=== PATIENT | female | born 1990 | race American Indian/Alaskan Native ===

== ENCOUNTER 2019-01-28 20:26 | Inpatient (IN) | payer MEDICAID ==
[2019-01-28] MEDS ORDERED: BRETHINE IVP PRN (21:32)
[2019-01-28] MEDS ORDERED: STADOL IV PRN (21:32)
[2019-01-28] MEDS ORDERED: CERVIDIL VG ONE (21:32)
[2019-01-28] MEDS ORDERED: XYLOCAINE 2% INFILTRATI ONE (21:32)
[2019-01-28] MEDS ORDERED: ZOFRAN IV PRN (21:32)
[2019-01-28] MEDS ORDERED: BRETHINE SUB-Q PRN (21:32)
[2019-01-28] MEDS ORDERED: NARCAN 0.4 MG/1 ML IV PRN (21:32)
[2019-01-28] MEDS ORDERED: SUBLIMAZE IV PRN (21:32)
[2019-01-28] MEDS ORDERED: MINERAL OIL PO PRN (21:32)
[2019-01-28 21:46] LABS: Hematocrit 37.5 % (30.3-42.9); Hemoglobin 12.4 gm/dl (10.1-14.3); Mean Corpuscular HGB Conc 33 % (30-34); Mean Corpuscular Volume 86 fl (79-97); Platelet Count 268 K/mm3 (140-440); Red Blood Count 4.38 M/mm3 (3.65-5.03); Red Cell Distribution Width 15.2 % (13.2-15.2)
[2019-01-28] MEDS ORDERED: PITOCin/NS 20 UNIT/1000ML DRIP 20 UNITS/1,000 ML BAG IV SCH (22:00)
[2019-01-29] MEDS ORDERED: PITOCin/NS 30 UNIT/500ML 30 UNITS/500 ML BAG IV SCH
[2019-01-29] MEDS: LACTATED RINGERS 1,000 ML IV SCH ×2 (01:13→11:10)
--- NOTE | 2019-01-29 12:12 | History and Physical Report ---
History of Present Illness Date of examination: 01/29/19 Date of admission: 01/28/19 20:26 Chief complaint: scheduled induction History of present illness: Pt is a 28 year old female primigravida SARI 01/20/19 at 41w2d who presents for scheduled induction for postdates. Overnight she received cervidil, which is still in place. She reports good movement, and denies vaginal bleeding or leakage of fluid. She has had care at [facility] since 28 wks complicated by late entry to care at 28 wks, genital herpes on Valtrex suppression without lesion or prodrome, and alpha thalassemia carrier status. She is GBS negative. Past History Past Medical History: no pertinent history Past Surgical History: no surgical history [facility] History: herpes (on suppression, no lesion or prodrome ) Family/Genetic History: none Social history: no significant social history - Obstetrical History Expected Date of Delivery: 01/20/19 Actual Gestation: 41 Week(s) 2 Day(s) : 1 Medications and Allergies Allergies Allergy/AdvReac Type Severity Reaction Status Date / Time No Known Allergies Allergy Verified 01/28/19 21:59 Active Meds: Active Medications Butorphanol Tartrate (Stadol) 2 mg IV Q2H PRN PRN Reason: Pain , Severe (7-10) Ephedrine Sulfate (Ephedrine Sulfate) 10 mg IV Q2M PRN PRN Reason: Hypotension Fentanyl (Sublimaze) 100 mcg IV Q2H PRN PRN Reason: Labor Pain Oxytocin/Sodium Chloride (Pitocin/Ns 20 Unit/1000ml Drip) 20 units in 1,000 mls @ 125 mls/hr IV DIRECT ISAIAH Oxytocin/Sodium Chloride (Pitocin/Ns 30 Unit/500ml) 30 units in 500 mls @ 2 mls/hr IV TITR ISAIAH; Protocol Lactated Ringer's (Lactated Ringers) 1,000 mls @ 125 mls/hr IV DIRECT ISAIAH Last Admin: 01/29/19 11:10 Dose: 125 mls/hr Documented by: Mineral Oil (Mineral Oil) 30 ml PO QHS PRN PRN Reason: Constipation Naloxone HCl (Narcan 0.4 Mg/1 Ml) 0.1 mg IV Q2MIN PRN PRN Reason: Res Rate </= 8 or 02 SAT < 92% Ondansetron HCl (Zofran) 4 mg IV Q8H PRN PRN Reason: Nausea And Vomiting Terbutaline Sulfate (Brethine) 0.25 mg SUB-Q ONCE PRN PRN Reason: Hyperstimulation/Hypertonicity Terbutaline Sulfate (Brethine) 0.25 mg IVP ONCE PRN PRN Reason: Hyperstimulation/Hypertonicity Review of Systems All systems: negative - Vital Signs Vital signs: Vital Signs Pulse BP 88 122/84 01/28/19 20:51 01/28/19 20:51 Temp Pulse Resp BP Pulse Ox 98.8 F 76 14 116/65 99 01/29/19 07:00 01/29/19 12:01 01/29/19 07:00 01/29/19 11:54 01/29/19 12:01 - Physical Exam Breasts: Positive: deferred Cardiovascular: Regular rate Lungs: Positive: Clear to auscultation Abdomen: Positive: soft (gravid ) Uterus: Positive: enlarged (gravid ) Extremities: Positive: normal - Obstetrical FHR: auscultation normal Cervical Dilatation: 1.5 Cervical Effacement Percentage: 60 station: -3 Uterine Contraction Pattern: Irregular Uterine Tone Measurement Phase: Resting Uterine Contraction Intensity: Mild Results Result Diagrams: 01/28/19 21:00 All other labs normal. Assessment and Plan A: IUP at 41w2d undergoing induction of labor Genital herpes without lesion or prodrome Alpha thalassemia carrier GBS Negative P: Admit to labor and delivery Cervidil removed-continue induction with pitocin Closely monitor maternal and status
[2019-01-30] MEDS: LACTATED RINGERS 1,000 ML IV SCH (07:30)
[2019-01-30] MEDS ORDERED: CYTOTEC VG SCH (10:00)
--- NOTE | 2019-01-30 10:10 | Event Note ---
Date: 01/30/19 Pt comfortable depsite pitocin augmentation. SVE: /3. Continue induction with cytotec. Closely monitor maternal and status.
[2019-01-30] MEDS ORDERED: REGLAN IV ONE (11:21)
[2019-01-30] MEDS ORDERED: BICITRA PO ONE (11:21)
[2019-01-30] MEDS ORDERED: PEPCID IV ONE (11:21)
--- NOTE | 2019-01-30 11:25 | Event Note ---
Date: 01/30/19 Pt with near absent variability with misoprostol, minimally responsive to resuscitation. Plan to proceed with primary section.
--- NOTE | 2019-01-30 11:47 | Anesthesia Consultation ---
Anesthesia Consult and Med Hx Date of service: 01/30/19 - Airway Anesthetic Teeth Evaluation: Good ROM Head & Neck: Adequate Mental/Hyoid Distance: Adequate Mallampati Class: Class II Intubation Access Assessment: Probably Good - Pulmonary Exam CTA: Yes - Cardiac Exam Cardiac Exam: RRR - Pre-Operative Health Status ASA Pre-Surgery Classification: ASA2 Proposed Anesthetic Plan: Spinal - Pulmonary Hx Asthma: No COPD: No Hx Pneumonia: No - Cardiovascular System Hx Hypertension: No - Central Nervous System Hx Seizures: No Hx Psychiatric Problems: No - Endocrine Hx Renal Disease: No Hx End Stage Renal Disease: No Hx Hypothyroidism: No Hx Hyperthyroidism: No - Hematic Hx Anemia: No Hx Sickle Cell Disease: No - Other Systems Hx Alcohol Use: No
--- NOTE | 2019-01-30 11:47 | Anesthesia Day of Surgery ---
Anesthesia Day of Surgery - Day of Surgery Patient Examined: Yes Patient H&P Reviewed: Yes Patient is NPO: Yes
[2019-01-30] MEDS ORDERED: NARCAN 0.4 MG/1 ML IV PRN ×2 (11:48→16:33)
[2019-01-30] MEDS ORDERED: NUBAIN IV PRN (11:48)
[2019-01-30] MEDS ORDERED: ZOFRAN IV PRN ×2 (11:48→16:33)
[2019-01-30] MEDS ORDERED: PHENERGAN PR PRN (11:48)
[2019-01-30] MEDS ORDERED: PHENERGAN PO PRN (11:48)
[2019-01-30] MEDS ORDERED: ANCEF/STERILE WATER 2 GM/20 ML 2 GM/20 ML SYRINGE IV NR (12:00)
[2019-01-30] MEDS ORDERED: PITOCin/NS 20 UNIT/1000ML DRIP 20 UNITS/1,000 ML BAG IV SCH ×2 (12:00→16:33)
[2019-01-30] MEDS ORDERED: LACTATED RINGERS 1,000 ML IV SCH (12:00)
[2019-01-30] MEDS ORDERED: WATER FOR IRRIG STERILE IR ONE (12:04)
[2019-01-30] MEDS ORDERED: NACL 0.9% IR ONE (12:04)
[2019-01-30] MEDS ORDERED: METHERGINE IM ONE ×3 (12:42→12:44)
[2019-01-30] MEDS ORDERED: ZOFRAN ONE (12:50)
[2019-01-30] MEDS ORDERED: DECADRON ONE (12:50)
[2019-01-30] MEDS ORDERED: MARCAINE 0.5% INFILTRATI ONE (12:50)
[2019-01-30] MEDS ORDERED: DEXMEDETOMIDINE IV ONE (12:50)
--- NOTE | 2019-01-30 13:12 | Operative Report ---
Operative Report Operative Report: Date of procedure: January Preoperative diagnosis: 1) IUP at 41w3d 2)NRFHTs 3) Arrest of dilation Postoperative diagnosis: Same 4) Cephalopelvic disproportion Procedure:Primary low transverse section Surgeon: Marguerite Daniels M.D. Anesthesia: Regional Findings: 1) Viable female , Apgars 8 and 9, weight 4119g, (9 lb 1 oz) in cephalic presentation. True knot in umbilical cord 2) Normal-appearing uterus ovaries and tubes Estimated blood loss: 500 mL IV fluids:600 mL Urine output: 100 mL, clear at the end of the procedure Drains: Tucker to gravity Specimens: None Complications:None.Counts correct x 3 Disposition: Stable to PACU Indication for procedure: Pt is a 28 year old primigravida at 41w3d who presents secondary to near absent variability remote from delivery and no cervical change with multiple cervical ripening agents over 48 hours. Operation in detail: After the risks, benefits, alternatives and complications were explained to the patient she gave informed consent for the procedure. She was subsequently taken to the operating room where regional anesthesia was noted to be adequate. She was subsequently placed in the dorsal supine position with leftward tilt and prepped and draped in a normal sterile fashion. heart tones were noted to be in the 130s prior to incision. A timeout was performed. A Pfannenstiel skin incision was made with the knife and carried down to the layer of the fascia with the Bovie. The fascia was incised in the midline and the fascial incision was extended bilaterally with the Bovie. The fascial incision was then stretched. The rectus muscles were then in the midline and partially transected for adequate visualization. The peritoneum was then entered bluntly. The peritoneal incision was extended with good visualization of the bladder. The peritoneal incision was then stretched. An Wolf self-retaining retractor was placed. The bladder blade was placed. The vesicouterine peritoneum was grasped with smooth pickups and incised with Metzenbaum scissors. Metzenbaum scissors were used to extend the incision bilaterally. The bladder flap was then created digitally and the bladder blade was replaced. A transverse incision was made in the lower uterine segment with a knife and extended bilaterally with the bandage scissors. The head was delivered without difficulty followed by shoulders and body. True knot in umbilical cord noted. was bulb suctioned at delivery. The cord was clamped and cut and the was handed to NICU staff in attendance. Cord blood was collected. The placenta was then delivered manually. The uterus was then exteriorized and cleared of all clots and debris. The hysterotomy was then reapproximated with 0 Vicryl in a running locked fashion. A second layer of the same suture was used in imbricating fashion. The hysterotomy was inspected and hemostasis was noted. The Wolf retractor was removed and the gutters were irrigated and cleared of all clots and debris. The hysterotomy was again inspected and noted to be hemostatic. Surgicel was placed over the hysterotomy. The peritoneum was reapproximated with 2-0 Vicryl in a running fashion incorporating the rectus muscles. The fascia was reapproximated with 0 Vicryl in a running fashion. The subcutaneous tissue was reapproximated with 3-0 Vicryl in a running fashion. The skin was reapproximated with 4-0 Vicryl in a subcuticular fashion. The incision was then covered with steri strips and a pressure dressing. The procedure was then ended. The patient tolerated the procedure well and was taken to the PACU in stable condition. All instrument, lap, and needle counts were correct 3.
--- NOTE | 2019-01-30 13:12 | Procedure Note ---
OB Delivery Note - Delivery Date of Delivery: 01/30/19 Surgeon: CHIDI MONTES Estimated blood loss: 500cc - Section Preop diagnosis: arrest of dilation, nonreassuring FHR tracing Postop diagnosis: same section procedure: section, primary low transverse Disposition: PACU Complications: uterine atony Narrative: Please see operative report. - A at 1 minute: 8 at 5 minutes: 9 Infant Gender: Female (4119g (9lb 1 oz) @ 1235 pm)
[2019-01-30] MEDS ORDERED: NACL P/F VIAL (10 ML) 10 ML ONE (13:16)
--- NOTE | 2019-01-30 14:30 | Post Anesthesia Evaluation ---
- Post Anesthesia Evaluation Patient Participated: Yes Airway Patent: Yes Stable Respiratory Function: Yes Nausea/Vomiting: No Temp > 96.8F: Yes Pain Manageable: Yes Adequeate Hydration: Yes Anesthesia Complications: No Block Receding Appropriately: Yes
[2019-01-30] MEDS ORDERED: MYLICON PO PRN (16:33)
[2019-01-30] MEDS ORDERED: SODIUM CHLORIDE FLUSH SYRINGE 10 ML IV SCH (16:33)
[2019-01-30] MEDS ORDERED: TUCKS PAD TP PRN (16:33)
[2019-01-30] MEDS ORDERED: LANSINOH TP PRN (16:33)
[2019-01-30] MEDS ORDERED: D5LR 1,000 ML IV SCH (16:33)
[2019-01-30] MEDS ORDERED: MILK OF MAGNESIA PO PRN (16:33)
[2019-01-30] MEDS ORDERED: TORADOL IV PRN (16:33)
[2019-01-30] MEDS: ANCEF/NS 1 GM/50 ML 1 GM/50 ML BAG IV SCH (20:00)
[2019-01-31 04:50] LABS: Hematocrit 35.1 % (30.3-42.9); Hemoglobin 11.6 gm/dl (10.1-14.3)
[2019-01-31] MEDS: ANCEF/NS 1 GM/50 ML 1 GM/50 ML BAG IV SCH (05:52)
[2019-01-31] MEDS: PERCOCET 5/325 PO PRN ×4 (06:26→20:10)
[2019-01-31] MEDS: FEOSOL PO SCH (10:22)
[2019-01-31] MEDS: IBUPROFEN PO PRN ×2 (10:22→16:01)
--- NOTE | 2019-01-31 10:57 | Progress Note ---
Assessment and Plan A: POD#1 s/p primary section at term P: Routine postoperative care. Subjective - Subjective Date of service: 01/31/19 Principal diagnosis: s/p primary at term Interval history: No overnight events. Suboptimal usage of pain medication. No flatus Patient reports: appetite normal, voiding normally, pain poorly controlled, ambulating normally, no flatus, no bowel movement, no nauseated [place]: doing well Objective - Vital Signs Latest vital signs: Vital Signs Temp Pulse Resp BP BP BP Pulse Ox 01/31/19 07:35 98.1 F 66 16 124/62 100 01/31/19 00:46 98.0 F 65 20 110/58 96 01/30/19 21:00 99.2 F 01/30/19 20:12 100.5 F H 66 20 112/72 98 01/30/19 15:50 96 F L 53 L 16 118/52 01/30/19 15:20 97.3 F L 51 L 18 143/77 99 01/30/19 14:45 56 L 14 145/82 97 01/30/19 14:30 51 L 14 145/92 98 01/30/19 14:15 54 L 15 136/77 97 01/30/19 14:00 56 L 14 129/60 99 01/30/19 13:45 53 L 14 133/54 96 01/30/19 13:30 55 L 12 112/64 98 01/30/19 13:25 71 13 121/70 95 01/30/19 13:20 97.6 F 53 L 12 117/60 97 01/30/19 13:18 97.6 F 55 L 12 107/54 97 01/30/19 11:42 33 L 75 L 01/30/19 11:39 76 100 01/30/19 11:34 96 H 100 01/30/19 11:31 84 87 01/30/19 11:29 74 100 01/30/19 11:24 75 100 01/30/19 11:19 75 100 01/30/19 11:14 85 100 01/30/19 11:09 62 99 01/30/19 11:04 66 100 01/30/19 11:03 61 117/73 01/30/19 10:59 67 98 Intake and Output 01/30/19 01/31/19 01/31/19 22:59 06:59 14:59 Intake Total 530 360 Output Total 50 1400 Balance 480 -1040 Intake: IV 350 ANCEF/NS 1 GM/50 ML 1 gm 50 In 50 ml @ 100 mls/hr IV Q8H [facility] Rx#:[id number] Oral 180 Intake, Free Water 360 Output: Urine 50 1400 Indwelling Catheter 1400 Other: Total, Intake Amount 90 Total, Output Amount 1400 # Voids Void 200 Estimated Blood Loss 500 - Exam Breasts: Present: deferred Cardiovascular: Present: Regular rate Lungs: Present: Clear to auscultation Abdomen: Present: soft, distention (mild ) Uterus: Present: fundal height at umbilicus Extremities: Present: normal Incision: Present: dressed
[2019-01-31] MEDS ORDERED: BOOSTRIX IM ONE (13:18)
[2019-01-31] MEDS ORDERED: M-M-R II VACCINE SUB-Q ONE (13:18)
[2019-02-01] MEDS: PERCOCET 5/325 PO PRN ×4 (00:47→21:05)
[2019-02-01] MEDS: IBUPROFEN PO PRN ×4 (00:48→23:22)
[2019-02-01] MEDS ORDERED: BOOSTRIX IM ONE (06:00)
--- NOTE | 2019-02-01 08:13 | Progress Note ---
Assessment and Plan A: POD#2 s/p primary section at term P: Routine postoperative care. D/c home tomorrow with f/u in 2 weeks Subjective - Subjective Date of service: 02/01/19 Principal diagnosis: s/p primary at term Patient reports: appetite normal, voiding normally, pain well controlled, flatus, ambulating normally [place]: doing well Objective - Vital Signs Latest vital signs: Vital Signs Temp Pulse Resp BP BP Pulse Ox 02/01/19 00:47 18 02/01/19 00:36 98.1 F 78 20 119/75 98 01/31/19 16:46 97.8 F 16 108/64 01/31/19 12:25 97.6 F 73 18 119/77 95 Intake and Output 01/31/19 02/01/19 02/01/19 23:59 07:59 15:59 Intake Total 240 Balance 240 Intake: Oral 240 Other: Total, Intake Amount 240 # Voids Void 1 - Exam Breasts: Present: normal Cardiovascular: Present: Regular rate, Normal S1 Lungs: Present: Clear to auscultation, Normal air movement Abdomen: Present: normal appearance, soft, normal bowel sounds. Absent: distention, tenderness, guarding Uterus: Present: normal, firm, fundal height below umbilicus. Absent: bogginess, tenderness Extremities: Present: normal Deep Tendon Reflex Grade: Normal +2 Incision: Present: normal, dry, intact
--- NOTE | 2019-02-01 08:15 | Discharge Summary ---
Providers - Providers Date of Admission: 01/28/19 20:26 Date of discharge: 02/02/19 Attending physician: CHIDI MONTES Primary care physician: CHIDI MONTES Hospitalization Reason for admission: induction of labor Delivery: Procedure: section Episiotomy: none Laceration: none Incision: normal, dry, intact Other procedures: none Discharge diagnosis: IUP at term delivered baby: female Hospital course: patient had a csec for arrest of dilation. routine PP care. d/c home with f/u in 2 weeks Condition at discharge: Good Disposition: DC-01 TO HOME OR SELFCARE Plan - Discharge Medications Prescriptions: Ferrous Sulfate [Feosol 325 MG tab] 325 mg PO BID #60 tablet Ibuprofen [Motrin] 800 mg PO Q8HR PRN #30 tablet PRN Reason: Pain, Moderate (4-6) oxyCODONE /ACETAMINOPHEN [Percocet 5/325] 1 tab PO Q6HR PRN #40 tablet PRN Reason: Pain - Provider Discharge Summary Activity: routine, no sex for 6 weeks, no strenuous exercise Diet: routine Instructions: routine Additional instructions: [] Smoking cessation referral if applicable(refer to patient education folder for contact #) [] Refer to [facility]'s [facility] Booklet Call your doctor immediately for: * Fever > 100.5 * Heavy vaginal bleeding ( >1 pad per hour) * Severe persistent headache * Shortness of breath * Reddened, hot, painful area to leg or breast * Drainage or odor from incision. * Keep incision clean and dry at all times and follow doctor's instructions regarding bathing/showering - Follow up plan Follow up: CHIDI MONTES MD [Primary Care Provider] - 14 Days
[2019-02-01] MEDS: MILK OF MAGNESIA PO SCH ×3 (11:33→23:22)
[2019-02-01] MEDS: FEOSOL PO SCH (11:34)
[2019-02-02] MEDS: IBUPROFEN PO PRN (05:24)
[2019-02-02] MEDS: MILK OF MAGNESIA PO SCH (05:24)
--- NOTE | 2019-02-02 08:36 | Progress Note ---
Assessment and Plan POD3 s/p primary LTCS Vital signs and labs stable Discharge to home today Subjective - Subjective Date of service: 02/02/19 Principal diagnosis: s/p primary at term Interval history: POD3 s/p primary LTCS for NRFHT Patient reports: appetite normal, voiding normally, pain well controlled, flatus, ambulating normally : doing well, nursing well, bottle feeding (both breast and bottle) Objective - Vital Signs Latest vital signs: Vital Signs Temp Pulse Resp BP Pulse Ox 02/01/19 23:37 98.5 F 81 20 127/62 95 02/01/19 15:53 98.7 F 69 20 127/66 97 Intake and Output 02/01/19 02/02/19 02/02/19 23:59 07:59 15:59 Intake Total 120 240 Balance 120 240 Intake: Oral 120 240 Other: Total, Intake Amount 120 240 # Voids Void 1 - Exam Breasts: Present: deferred Lungs: Present: Normal air movement Abdomen: Present: normal appearance, soft Uterus: Present: normal, firm, fundal height below umbilicus Extremities: Present: normal Incision: Present: normal, dry, intact
[2019-02-02] MEDS: FEOSOL PO SCH (10:15)
[2019-02-02] MEDS: PERCOCET 5/325 PO PRN (10:15)
[2019-02-02 17:49] VITALS: BP 118/64
== END 2019-02-02 11:29 | disposition home or self-care (01) | DRG 765 ==
LOC: LD 20:26 → OB 01-30 16:32
PROVIDERS: ADMIT Obstetrics & Gynecology; ATTEND Obstetrics & Gynecology
PROC: 3E0P7VZ Introduction of Hormone into Female Reproductive, Via Natural or Artificial Opening (ICD-10-PCS; 2019-01-29)
PROC: 3E033VJ Introduction of Other Hormone into Peripheral Vein, Percutaneous Approach (ICD-10-PCS; 2019-01-29)
PROC: 10D00Z1 Extraction of Products of Conception, Low, Open Approach (ICD-10-PCS; principal; 2019-01-30)
PROC: 3E0234Z Introduction of Serum, Toxoid and Vaccine into Muscle, Percutaneous Approach (ICD-10-PCS; 2019-02-01)
DX: O48.0 Post-term pregnancy (principal); O98.32 Other infections with a predominantly sexual mode of transmission complicating childbirth; Z3A.41 41 weeks gestation of pregnancy; Z37.0 Single live birth; O33.9 Maternal care for disproportion, unspecified; O76 Abnormality in fetal heart rate and rhythm complicating labor and delivery; O75.89 Other specified complications of labor and delivery; O62.0 Primary inadequate contractions; Z23 Encounter for immunization
CPT/HCPCS: 36415; 85014; 85018; 85027; 86592; 86850; 86900; 86901; 90715; G0378; A6250; J0690; J1100; J1885; J2210; J2405; J2590; J2765; J3490; J7120; J7121